=== PATIENT | male | born 1955 | race Caucasian/White ===

== ENCOUNTER → 2017-05-25 | Day surgery (SDC) | payer MEDICARE ==
[~2017-05-25] VITALS: Ht 177.8 cm; Wt 106.5 kg
[~2017-05-25] MED LIST: 0.9% Sodium Chloride 1,000 ML IV SCH; Sodium Chloride LOK Flush 10 mL Syringe IV PRN; fentaNYL-PF 50 mCg/mL 2 mL Inj IVPUSH PRN
[2017-05-25 09:18] VITALS: BP 124/76; PULSE 58; RESP 12; O2SAT 97
[2017-05-25 10:26] VITALS: BP 110/67; PULSE 65; RESP 15; O2SAT 96
[2017-05-25 10:36] VITALS: BP 104/65; PULSE 63; RESP 15; O2SAT 96
[2017-05-25 10:45] VITALS: BP 124/83; PULSE 63; RESP 15; O2SAT 95
--- NOTE | 2017-05-25 13:56 | ENDO ---
[address] [address] ENDOSCOPY PROCEDURE PATIENT: STEWART MAGAAN : 1955 MR#: [id number] ADMIT: 05/25/2017 JOB ID: [id number] TITLE OF OPERATION: Colonoscopy. PREOPERATIVE DIAGNOSIS(ES): Colorectal cancer screening. POSTOPERATIVE DIAGNOSIS(ES): 1. Sigmoid diverticulosis, mild. 2. Small internal hemorrhoids. ANESTHESIA: Fentanyl 100 mcg, Versed 5 mg IV administered. COMPLICATION: None. DESCRIPTION OF PROCEDURE: After the risks and benefits were explained to the patient, informed consent was obtained. After anesthesia was administered, the colonoscope was inserted from the rectum to the cecum and the mucosa carefully examined. Prep of the patient was fair. After the procedure was done, the scope was withdrawn and the procedure terminated. FINDINGS: Upon inspection of the anus, no masses, hemorrhoids, ulcers, or fissures that were seen. Throughout the entire examination no polyps or masses were seen. There was mild sigmoid diverticulosis. Retroflexion showed small internal hemorrhoids. IMPRESSION: 1. Small internal hemorrhoids. 2. Mild sigmoid diverticulosis. RECOMMENDATIONS: 1. High-fiber diet. 2. Repeat colonoscopy in five years given the patient may have had history of colon polyps as an outpatient. 3. Follow up in [facility] Clinic as needed.
== END | disposition home or self-care (01) ==
LOC: END 01:02
PROVIDERS: ATTEND Internal Medicine Gastroenterology
DX: Z12.11 Encounter for screening for malignant neoplasm of colon (principal); K57.30 Diverticulosis of large intestine without perforation or abscess without bleeding; K64.8 Other hemorrhoids
CPT/HCPCS: G0121; G0500; J2250; J3010; J7030